=== PATIENT | female | born 1975 | race Caucasian/White ===

== ENCOUNTER 2016-09-22 09:02 | Emergency (ER) | payer OTHER ==
[2016-09-22] MEDS ORDERED: Lidocaine PATCH 5%* 1 PATCH TRANSDERM ONE (10:15)
[2016-09-22] MEDS ORDERED: Ibuprofen TAB* 400 MG PO ONE (10:16)
[2016-09-22 10:51] VITALS: BP 115/71
--- NOTE | 2016-09-22 18:11 | ED ---
Laquita Michelle Claudia, scribed for Robbie Curtis MD on 09/22/16 at 0958 . Back Pain - HPI Summary HPI Summary: 41 year old female presents to the ED with back pain. Pt states she has a herniated disc at L1-L2 but is unable to her surgery to repair it due to her current enrollment in [facility]. She notes pain has gradual increased over the past 4 days bringing her to the ED. Pt states she enrolled herself in [facility] to achieve the best help. She notes she has associated SX of right leg pain associated with her sciatica causing sharp pain and some numbness to her right leg on the lateral surface. Pt notes that her PCP is out of town this week and she is requesting some pain management. Pt sates she is currently taking Gabapentin 300mg 3x a day and Flexerol which has not been helping with her pain. The pt states that she is unable to get her usual Lidocaine patches due to insurance reasons. The pt is requesting a change in her muscle relaxant to Tizanidine 4mg 3X day which she was taking in January and an increase in her Gabapentin Rx to 600mg 2x daily and some Lidocaine patches. - History of Current Complaint Chief Complaint: EDBackInjuryPain Stated Complaint: BACK PAIN Time Seen by Provider: 09/22/16 09:47 Hx Obtained From: Patient Onset/Duration: Gradual Onset, Still Present Onset/Duration: Started Days Ago, Still Present Timing: Constant Pain Intensity: 8 Pain Scale Used: 0-10 Numeric Character: Sharp Aggravating Symptom(s): Movement Associated Signs And Symptoms: Positive: Numbness - Allergies/Home Medications Allergies/Adverse Reactions: Allergies Allergy/AdvReac Type Severity Reaction Status Date / Time Sulfa Antibiotics Allergy Unknown Verified 09/22/16 09:11 Reaction Details PMH/Surg Hx/FS Hx/Imm Hx Previously Healthy: Yes Endocrine/Hematology History: Denies: Hx Diabetes Cardiovascular History: Denies: Hx Myocardial Infarction Infectious Disease History: No Infectious Disease History: Denies: Traveled Outside the [place] in Last 30 Days - Family History Known Family History: Negative: Diabetes - Social History Occupation: Unemployed Alcohol Use: None Substance Use Type: Reports: Cocaine, Marijuana Smoking Status (MU): Former Smoker Review of Systems Constitutional: Negative Negative: Fever Eyes: Negative ENT: Negative Cardiovascular: Negative Respiratory: Negative Gastrointestinal: Negative Genitourinary: Negative Positive: Other - back pain, leg pain bilaterally Skin: Negative Positive: Paresthesia - right leg lateral side Psychological: Normal All Other Systems Reviewed And Are Negative: Yes Physical Exam - Summary Physical Exam Summary: The patient is well-nourished in no acute distress and in no acute pain. The skin is warm and dry and skin color reflects adequate perfusion. HEENT: The head is normocephalic and atraumatic. The pupils are equal and reactive. The conjunctivae are clear and without drainage. Nares are patent and without drainage. Mouth reveals moist mucous membranes and the throat is without erythema and exudate. The external ears are intact. The ear canals are patent and without drainage. The tympanic membranes are intact. Neck is supple with full range of motion and non-tender. There are no carotid bruits. There is no neck vein distension. Respiratory: Chest is non-tender. Lungs are clear to auscultation and breath sounds are symmetrical and equal. Cardiovascular: Hear is regular rate and rhythm. There is no murmur or rub auscultated. There is no peripheral edema and pulses are symmetrical and equal. Abdomen: The abdomen is soft and non-tender. There are normal bowel sounds heard in all four quadrants and there is no organomegaly palpated. Musculoskeletal: There is no back pain noted. Extremities are non-tender with full range of motion. There is good capillary refill. There is no peripheral edema or calf tenderness elicited. Muscle spasms lumbar spine bilaterally, bilateral and ipsilateral straight leg raises 45 degrees. Neurological: Patient is alert and oriented to person, place and time. The patient has symmetrical motor strength in all four extremities. Cranial nerves are grossly intact. Deep tendon reflexes are symmetrical and equal in all four extremities. Psychiatric: The patient has an appropriate affect and does not exhibit any anxiety or depression. Triage Information Reviewed: Yes Vital Signs On Initial Exam: Initial Vitals Temp Pulse Resp BP Pulse Ox 98.4 F 87 18 125/76 99 09/22/16 09:07 09/22/16 09:07 09/22/16 09:07 09/22/16 09:07 09/22/16 09:07 Vital Signs Reviewed: Yes Diagnostics - Vital Signs Vital Signs Temp Pulse Resp BP Pulse Ox 09/22/16 09:07 98.4 F 87 18 125/76 99 - Laboratory Lab Statement: Any lab studies that have been ordered have been reviewed, and results considered in the medical decision making process. Back Pain Course/Dx - Course Assessment/Plan: MDM: 41 year old pt presents with back pain raidating down her legs bilaterally. PMHX of herniated disc at L1-L2 being monitored. Pt is requesting some pain management while she is a inpatient at [facility]. Pt will be d/ c with new Rx. With follow-up with PCP this week. - Diagnoses Differential Diagnosis/HQI/PQRI: Positive: Herniated Disc, Other - sciatica, prescription refill Provider Diagnoses: back pain Discharge - Discharge Plan Condition: Stable Disposition: HOME Prescriptions: Gabapentin [Neurontin 800 mg tab] 800 mg PO TID #90 tab Lidocaine PATCH 5%* [Lidoderm 5% Patch*] 2 patch TRANSDERM DAILY #10 patch Tizanidine HCl [Zanaflex] 4 mg PO TID #90 cap Patient Education Materials: Tizanidine (By mouth), Gabapentin (By mouth), Lidocaine Patch (On the skin), Back Pain (ED) Referrals: Belinda Barlow MD [Primary Care Provider] - 2 Days The documentation as recorded by the Laquita campos Claudia accurately reflects the service I personally performed and the decisions made by , Robbie Curtis MD.
[2016-09-22] MEDS ORDERED: Lidocaine Patch REMOVE* 1 NOTE MISC SCH (21:00)
== END 2016-09-22 11:05 | disposition home or self-care (01) ==
LOC: ED 09:02
DX: M54.9 Dorsalgia, unspecified (principal); Z87.891 Personal history of nicotine dependence
CPT/HCPCS: 99282; A9270-GY

== ENCOUNTER 2016-09-26 13:33 | Emergency (ER) | payer OTHER ==
[2016-09-26] MEDS ORDERED: Aspirin Low Dose CHEW TAB* 81 MG PO ONE (13:49)
[2016-09-26] MEDS ORDERED: Al Hydrox/Mg Hydrox/Simet LIQ* 30 ML UDC PO ONE (14:05)
[2016-09-26] MEDS ORDERED: Lidocaine 2% VISCOUS* 15 ML UDC PO ONE ×2 (14:05→16:09)
--- NOTE | 2016-09-26 14:34 | RAD ---
INDICATION: Chest pain. COMPARISON: There are no prior studies available for comparison. TECHNIQUE: Dual-energy PA and lateral views of the chest were obtained. FINDINGS: The heart is within normal limits in size. Mediastinal and hilar contours appear within normal limits. The lungs are clear. No pleural effusion or pneumothorax is seen. IMPRESSION: NO EVIDENCE FOR ACTIVE CARDIOPULMONARY DISEASE.
--- NOTE | 2016-09-26 14:36 | RAD ---
INDICATION: Chest pain and lump in throat. COMPARISON: There are no prior studies available for comparison. TECHNIQUE: AP and lateral images of the soft tissue of the neck were obtained. FINDINGS: The epiglottis and aryepiglottic folds appear to be within normal limits. The retropharyngeal soft tissues appear normal. The airway appears patent. No abnormal calcifications or radiopaque foreign body is seen. Incidental note is made of moderate degenerative disc disease at the C4-C5, C5-C6 and C6-C7 levels. IMPRESSION: NO EVIDENCE FOR ACUTE FINDING.
[2016-09-26] MEDS ORDERED: Nystatin SUSPENSION* 100000 UNITS/ML 5 ML UDC PO ONE (16:08)
[2016-09-26 16:39] VITALS: BP 122/80
--- NOTE | 2016-09-28 15:20 | ED ---
Henok Michelle SooYoung, scribed for Joe March MD on 09/26/16 at 1359 . Complex/Multi-Sys Presentation - HPI Summary HPI Summary: A 41 y/o F BIBA from [facility] presents to ED with c/o constant pain at anterior throat onset 3 days ago. Associated sx: dysphagia - pain with swallowing, sore throat, loss of appetite. She states it feels like she swallowed "a golf ball or a giant horse pill." Pain described as spasmodic. Denies cough, vomiting, choking, fever, chills, melena, change in voice. Tums alleviated the sz mildly, but not completely. She takes Protonix, Advair for COPD, psychiatric meds for bipolar disorder, Gabapentin, Tizanidine. No previous episodes with sx similar to this, it does not feel like her GERD. [facility]: currently. Former smoker; smoked cocaine and marijuana. Denies IVDA. She states she does not use pain medication other than Lidocaine patches, Ibuprofen. Pt was seen in ED on 09/22/16 for back pain. - History Of Current Complaint Chief Complaint: EDGeneral Time Seen by Provider: 09/26/16 13:47 Hx Obtained From: Patient Onset/Duration: Lasting Days - three days, Still Present Timing: Constant Severity Currently: Moderate Severity Initially: Moderate Alleviating Factor(s): Tums, mildly Associated Signs And Symptoms: Positive: Decreased Oral Intake - loss of appetite, Other - pos: sore throat, dysphagia; neg: choking, chills, change in voice. Negative: Cough, Vomiting, Melena, Fever - Allergies/Home Medications Allergies/Adverse Reactions: Allergies Allergy/AdvReac Type Severity Reaction Status Date / Time Sulfa Antibiotics Allergy Unknown Verified 09/22/16 09:11 Reaction Details PMH/Surg Hx/FS Hx/Imm Hx Previously Healthy: No Endocrine/Hematology History: Denies: Hx Diabetes Cardiovascular History: Denies: Hx Myocardial Infarction Respiratory History: Reports: Hx Chronic Obstructive Pulmonary Disease (COPD) GI History: Reports: Hx Gastroesophageal Reflux Disease Psychiatric History: Reports: Hx Bipolar Disorder Infectious Disease History: No Infectious Disease History: Denies: Traveled Outside the [place] in Last 30 Days - Family History Known Family History: Negative: Diabetes - Social History Occupation: Unemployed Lives: Long-Term - [facility] Alcohol Use: None Hx Substance Use: Yes Substance Use Type: Reports: Cocaine, Marijuana Substance Use Comment - Amount & Last Used: [facility] Hx Tobacco Use: Yes Smoking Status (MU): Former Smoker Review of Systems Positive: Other - pos: loss of appetite; neg: change in voice. Negative: Fever , Chills Positive: Sore Throat - and dysphagia Negative: Chest Pain Negative: Shortness Of Breath, Cough Positive: Other - neg: melena. Negative: Abdominal Pain, Vomiting, Nausea Negative: dysuria, hematuria Positive: Other - pos: throat pain. Negative: Edema Negative: Rash Neurological: Other - neg: dizziness All Other Systems Reviewed And Are Negative: Yes Physical Exam - Summary Physical Exam Summary: Constitutional: Well-developed, Well-nourished, Alert. (-) Distressed Skin: Warm, Dry HENT: Normocephalic; Atraumatic; POSITIVE EXUDATE IN POSTERIOR PHARYNX; LESIONS IN OROPHARYNX. Eyes: Conjunctiva normal Neck: Musculoskeletal ROM normal neck. (-) JVD, (-) Stridor, (-) Tracheal deviation; Cardio: Rhythm regular, rate normal, Heart sounds normal; Intact distal pulses; The pedal pulses are 2+ and symmetric. Radial pulses are 2+ and symmetric. (-) Murmur Pulmonary/Chest wall: Effort normal. (-) Respiratory distress, (-) Wheezes, (-) Rales Abd: Soft, (-) Tenderness, (-) Distension, (-) Guarding, (-) Rebound Musculoskeletal: (-) Edema Lymph: POSITIVE ANTERIOR CERVICAL LYMPHADENOPATHY Neuro: Alert, Oriented x3 Psych: Mood and affect Normal Triage Information Reviewed: Yes Vital Signs On Initial Exam: Initial Vitals Temp Pulse Resp BP Pulse Ox 98.5 F 93 20 112/70 98 09/26/16 13:35 09/26/16 13:35 09/26/16 13:35 09/26/16 13:35 09/26/16 13:35 Vital Signs Reviewed: Yes - Will Coma Scale Coma Scale Total: 15 Diagnostics - Vital Signs Vital Signs Temp Pulse Resp BP Pulse Ox 09/26/16 13:35 98.5 F 93 20 112/70 98 - Laboratory Lab Statement: Any lab studies that have been ordered have been reviewed, and results considered in the medical decision making process. - Radiology Soft Tissue Neck Xray Interpretation: No Acute Changes - Impression: No evidence for acute finding. Radiology Interpretation Completed By: Radiologist CXR Xray Interpretation: No Acute Changes - IMPRESSION: No evidence for active cardiopulmonary dz. Radiology Interpretation Completed By: Radiologist - EKG [address] ST Segment: Normal - NO STEMI EKG Interpretation: infero-lateral T-wave flattening, read at 1355 Re-Evaluation - Re-Evaluation 1 Re-Evaluation Time: 16:15 Change: Improved Comment: Discussing results with pt and plan to DC. Pt voiced understanding. Complex Multi-Symp Course/Dx Course Of Treatment: Pt is a 41 y/o F BIBA from [facility] presenting with constant pain at anterior throat onset 3 days ago. Associated sx: dysphagia - pain with swallowing, sore throat, loss of appetite. She states it feels like she swallowed "a golf ball or a giant horse pill." Pain described as spasmodic. Denies, change in voice. Tums alleviated the sz mildly, but not completely. No previous episodes with sx similar to this, it does not feel like her GERD. [facility] : currently. Former smoker; smoked cocaine and marijuana. Denies IVDA. Pt given Maalox, Aspirin and Lidocaine in ED. CXR and Soft Tissue XR are neg for acute findings. Strep A is negative. Influenza A and B are negative. All sx are reproduced with swallowing/eating. Lesions in oropharynx are likely source of pain; ramsey is primary consideration, does not have any neisseria risk factors; no vescicles are present. Pt will be D/C to [facility] with nystatin and viscous lido, and told to f/u with PCP in 2-3 days. - Diagnoses Provider Diagnoses: Pharyngitis, Esophagitis Discharge - Discharge Plan Condition: Stable Disposition: HOME Prescriptions: Lidocaine 2% VISCOUS* 15 ml PO Q4H #1 btl Nystatin SUSPENSION ORAL SYR* 100,000 units PO QID #1 bottle Nystatin SUSPENSION* 500,000 units PO QID PRN #1 bottle PRN Reason: Pain - Moderate To Severe Patient Education Materials: Pharyngitis (ED), Esophagitis (ED), Nystatin (By mouth), Lidocaine (Into the mouth) Referrals: Belinda Barlow MD [Primary Care Provider] - 3 Days (Follow up within 2-3 days. ) Additional Instructions: Follow up with your primary care provider in the next 2-3 days. Take your prescriptions as prescribed. Please return to the ED if you experience new or worsening symptoms. The documentation as recorded by the Henok campos SooYoung accurately reflects the service I personally performed and the decisions made by me, Joe March MD.
== END 2016-09-26 16:37 | disposition home or self-care (01) ==
LOC: ED 13:33
DX: J02.9 Acute pharyngitis, unspecified (principal); K20.9 Esophagitis, unspecified; R13.10 Dysphagia, unspecified
CPT/HCPCS: 70360; 71020; 87070; 87502; 87651; 93005; 99283; A9270-GY

== ENCOUNTER 2016-10-12 10:51 | Emergency (ER) | payer OTHER ==
[2016-10-12] MEDS ORDERED: Ketorolac INJ* 60 MG/2 ML VIAL IM ONE (13:59)
--- NOTE | 2016-10-12 14:24 | ED ---
Back Pain - HPI Summary HPI Summary: Patient presents with acute low back pain. She denies known trauma or injury. She states she has had this pain before and has been treated with different medications. She does not want opiates as she is an addict. She feels the pain is muscular. The pain is 8/10, constant and worse with hip extension. Denies radiation of pain, numbness or tingling. - History of Current Complaint Chief Complaint: EDBackInjuryPain Stated Complaint: BACK PAIN Time Seen by Provider: 10/12/16 11:35 Hx Obtained From: Patient Onset/Duration: Gradual Onset Onset/Duration: Started Hours Ago Timing: Constant Back Pain Location: Is Discrete @ - low back over l4-l5 from previous injury Severity Initially: Moderate Severity Currently: Moderate Pain Intensity: 8 Pain Scale Used: 0-10 Numeric Character: Aching Aggravating Symptom(s): Movement, Lifting, Bending, Walking Alleviating Symptom(s): Rest Associated Signs And Symptoms: Positive: Negative - Risk Factors AAA Risk Factors: Negative TAD Risk Factors: Negative Cauda Equina Risk Factors: Negative Epidural Abscess Risk Factors: Negative - Allergies/Home Medications Allergies/Adverse Reactions: Allergies Allergy/AdvReac Type Severity Reaction Status Date / Time Sulfa Antibiotics Allergy Unknown Verified 09/22/16 09:11 Reaction Details PMH/Surg Hx/FS Hx/Imm Hx Previously Healthy: Yes Endocrine/Hematology History: Denies: Hx Diabetes Cardiovascular History: Denies: Hx Myocardial Infarction Respiratory History: Reports: Hx Chronic Obstructive Pulmonary Disease (COPD) GI History: Reports: Hx Gastroesophageal Reflux Disease Psychiatric History: Reports: Hx Bipolar Disorder - Immunization History Hx Pertussis Vaccination: No Immunizations Up to Date: Unable to Obtain/Confirm Infectious Disease History: No Infectious Disease History: Denies: Traveled Outside the [place] in Last 30 Days - Family History Known Family History: Negative: Diabetes - Social History Occupation: Employed Full-time Lives: Alone Alcohol Use: None Hx Substance Use: Yes Substance Use Type: Reports: Cocaine, Marijuana Substance Use Comment - Amount & Last Used: [facility] Hx Tobacco Use: Yes Smoking Status (MU): Former Smoker Review of Systems Constitutional: Negative Eyes: Negative ENT: Negative Respiratory: Negative Gastrointestinal: Negative Positive: no symptoms reported, see HPI Positive: Arthralgia Skin: Negative Psychological: Normal All Other Systems Reviewed And Are Negative: Yes Physical Exam Triage Information Reviewed: Yes Vital Signs On Initial Exam: Initial Vitals Temp Pulse Resp BP Pulse Ox 97.0 F 96 20 139/52 95 10/12/16 11:00 10/12/16 11:00 10/12/16 11:00 10/12/16 11:00 10/12/16 11:00 Vital Signs Reviewed: Yes Appearance: Positive: Well-Appearing, Well-Nourished Skin: Positive: Warm, Skin Color Reflects Adequate Perfusion Head/Face: Positive: Normal Head/Face Inspection Eyes: Positive: EOMI, MAURI, Conjunctiva Clear Neck: Positive: Supple, No Lymphadenopathy Respiratory/Lung Sounds: Positive: Clear to Auscultation, Breath Sounds Present Cardiovascular: Positive: Normal, RRR, Pulses are Symmetrical in both Upper and Lower Extremities Musculoskeletal: Positive: Pain @ - low back Neurological: Positive: Normal, Sensory/Motor Intact, Alert, Oriented to Person Place, Time Diagnostics - Vital Signs Vital Signs Temp Pulse Resp BP Pulse Ox 10/12/16 11:02 97.1 F 94 20 139/52 100 10/12/16 11:00 97.0 F 96 20 139/52 95 - Laboratory Lab Statement: Any lab studies that have been ordered have been reviewed, and results considered in the medical decision making process. Back Pain Course/Dx - Course Course Of Treatment: evaluated for low back pain. encouraged to take lidocaine patches and use toradol. Rx given. Patient Ok with plan and return precautions given. - Diagnoses Differential Diagnosis/HQI/PQRI: Positive: Cauda Equina Syndrome, Herniated Disc , Strain, Sprain Provider Diagnoses: Low back pain Discharge - Discharge Plan Condition: Stable Disposition: HOME Prescriptions: Ketorolac TAB * [Toradol TAB *] 10 mg PO Q6H #16 tab Pregabalin CAP(*) [Lyrica CAP(*)] 300 mg PO BEDTIME #5 cap MDD 1 Patient Education Materials: Acute Low Back Pain (ED) Referrals: Belinda Barlow MD [Primary Care Provider] - Additional Instructions: Dx. Back pain Flexeril: This medication is a muscle relaxant and can help relieve muscle spasms, muscle strain, or pain sensations. Flexeril can cause side effects that may impair your thinking or reactions. Be careful if you drive or do anything that requires you to be awake and alert. Avoid drinking alcohol, which can increase some of the side effects of Flexeril. Ibuprofen 600mg three times daily with meals for discomfort. Return to ED if symptoms worsen or fail to improve, notice worsening swelling, warmth or redness around the joint, develop fever, or pain is uncontrolled with OTC medications. Moist heat to the area for comfort. Warm showers or baths may improve symptoms. It is important to remain mobile as tolerated to prevent stiffening of the joints and delay healing. Follow up with your PCP. If symptoms remain for > 6 weeks, please seek special medical attention from an orthopedic physician.
[2016-10-12 14:37] VITALS: BP 129/56
== END 2016-10-12 14:30 | disposition home or self-care (01) ==
LOC: ED 10:51
DX: M54.5 Low back pain (principal); Z87.891 Personal history of nicotine dependence
CPT/HCPCS: 96372; 99282; J1885